=== PATIENT | female | born 1985 | race Two or more races ===

== ENCOUNTER 2021-03-17 15:40 | Emergency (ER) | payer MEDICAID ==
[~2021-03-17] VITALS: Ht 154.9 cm; Wt 77.3 kg
[2021-03-17 16:28] VITALS: BP 135/88
[2021-03-17] MEDS ORDERED: METHOCARBAMOL 500 MG TABLET PO ONE (16:30)
[2021-03-17] MEDS ORDERED: KETOROLAC TROMETHAMINE 60 MG/2 ML VIAL IM ONE (16:30)
== END 2021-03-17 16:52 | disposition home or self-care (01) ==
LOC: EMS 15:42
DX: S39.012A Strain of muscle, fascia and tendon of lower back, initial encounter (principal); X50.0XXA Overexertion from strenuous movement or load, initial encounter; Y93.89 Activity, other specified; Y92.89 Other specified places as the place of occurrence of the external cause; Y99.8 Other external cause status
CPT/HCPCS: 96372; 99283; J1885

== ENCOUNTER 2021-03-29 12:10 | Emergency (ER) | payer MEDICAID ==
[~2021-03-29] VITALS: Ht 160 cm; Wt 70.9 kg
[2021-03-29] MEDS ORDERED: NAPR-1142 PO (12:35)
[2021-03-29] MEDS ORDERED: METH-812 PO (12:35)
[2021-03-29] MEDS ORDERED: LIDOCAINE 5% TRANSDERMAL PATCH TD ONE (12:45)
[2021-03-29] MEDS ORDERED: IBUPROFEN 600 MG TABLET PO ONE (12:45)
[2021-03-29 13:38] VITALS: BP 118/70
[2021-03-29 13:47] LABS: APPEARANCE,URINE CLOUDY (CLEAR); BILIRUBIN,URINE NEGATIVE (NEGATIVE); GLUCOSE, URINE (UA) NEGATIVE (NEGATIVE); KETONES,URINE NEGATIVE (NEGATIVE); LEUKOCYTE ESTERASE ,URINE SMALL (NEGATIVE); NITRATE,URINE NEGATIVE (NEGATIVE); PROTEIN,URINE NEGATIVE (NEGATIVE)
[2021-03-29 13:50] LABS: OCCULT BLOOD,URINE SMALL (NEGATIVE)
[2021-03-29 13:51] LABS: BACTERIA,URINE Few /HPF (None Seen); SQUAMOUS EPITHELIAL CELL,UR Moderate /LPF (None Seen)
== END 2021-03-29 14:12 | disposition home or self-care (01) ==
LOC: EMS 12:15
DX: S39.012A Strain of muscle, fascia and tendon of lower back, initial encounter (principal); Z79.899 Other long term (current) drug therapy; X50.9XXA Other and unspecified overexertion or strenuous movements or postures, initial encounter; Y93.89 Activity, other specified; Y92.89 Other specified places as the place of occurrence of the external cause; Y99.8 Other external cause status
CPT/HCPCS: 81001; 84703; 99283